=== PATIENT | female | born 1985 | race Caucasian/White ===

== ENCOUNTER 2022-05-07 09:40 | Outpatient (CLI) | payer OTHER ==
[~2022-05-07] VITALS: Ht 157.5 cm; Wt 79.1 kg
[2022-05-07] MEDS ORDERED: VYVANSE60 MG PO (10:15)
[2022-05-07] MEDS ORDERED: CRESTOR20 MG PO (10:16)
[2022-05-07] MEDS ORDERED: VITAMIN D 50,1.25 MG PO (10:16)
[2022-05-07] MEDS ORDERED: VITAMIN B650 MG PO (10:17)
[2022-05-07] MEDS ORDERED: FERROUS SU325 MG/TAB PO (10:18)
[2022-05-07] MEDS ORDERED: VITAMIN B11000 MCG/M IM (10:18)
[2022-05-07] MEDS ORDERED: CVS SPECTRAVIT1 EA15 PO (10:19)
[2022-05-07 10:20] VITALS: BP 110/71; PULSE 83; TEMP 97.8
[2022-05-07 11:29] VITALS: BP 125/46; PULSE 68
[2022-05-07 11:45] VITALS: BP 110/54; PULSE 68
[2022-05-07 11:52] LABS: GLUCOSE,CSF 60 mg/dL (40-70); TOTAL PROTEIN,CSF 21 mg/dL (15-45)
[2022-05-07 12:00] VITALS: BP 109/57; PULSE 71
[2022-05-07 12:15] VITALS: BP 109/57; PULSE 68
[2022-05-07 12:44] LABS: CSF APPEARANCE CLEAR; CSF COLOR COLORLESS; CSF RBC 5 /mm3 (0-0)
[2022-05-07 12:45] VITALS: BP 109/63; PULSE 86
--- NOTE | 2022-05-07 12:52 | NUR ---
Discharge instructions given to pt.Pt verbalizes understanding.Pt escorted out by Student Nurse.
[2022-05-07 12:58] LABS: CSF MONONUCLEAR 80 % (70-100); CSF POLYMORPHONUCLEAR 20 % (0-6)
[2022-05-12 09:43] LABS: ALBUMIN CSF 11.6 mg/dL (<=27.0); ALBUMUN SERUM 4300 mg/dL (())
[2022-05-12 09:45] LABS: IGG,SERUM 885 mg/dL (()); IGG/ALBUMIN SERUM 0.21 (<=0.40)
[2022-05-12 09:54] LABS: CSF,IGG 1.2 mg/dL (<=8.1); CSF-IGG INDEX 0.48 (<=0.85)
[2022-05-12 12:59] LABS: CSF OLIG BD INTERPRETATION 0 bands (<2); SE OLIGOCLONAL BANDING 1 bands (())
== END 2022-05-07 13:00 ==
LOC: COL.RAD 09:40
PROVIDERS: Psychiatry & Neurology Neurology
DX: G37.9 Demyelinating disease of central nervous system, unspecified (principal)

== ENCOUNTER → 2022-05-18 | Outpatient (CLI) | payer OTHER ==
[~2022-05-18] MED LIST: CRESTOR20 MG PO; CVS SPECTRAVIT1 EA15 PO; FERROUS SU325 MG/TAB PO; VITAMIN B11000 MCG/M IM; VITAMIN B650 MG PO; VITAMIN D 50,1.25 MG PO; VYVANSE60 MG PO
== END ==
LOC: COL.RAD 13:15
DX: M40.50 Lordosis, unspecified, site unspecified (principal); R90.82 White matter disease, unspecified; G35 Multiple sclerosis
CPT/HCPCS: A9575

== ENCOUNTER → 2023-01-25 | Outpatient (CLI) | payer OTHER ==
[~2023-01-25] MED LIST changes: +PREDNISONE20 MG PO
== END ==
LOC: COL.RAD 13:35
DX: K21.9 Gastro-esophageal reflux disease without esophagitis (principal)

== ENCOUNTER 2023-03-16 19:30 | Emergency (ER) | payer SELFPAY ==
[~2023-03-16] VITALS: Ht 157.5 cm; Wt 81.8 kg
[2023-03-16 19:39] VITALS: TEMP 98.2
[2023-03-16 20:15] VITALS: BP 127/82; PULSE 68
== END 2023-03-16 20:15 | disposition home or self-care (01) ==
LOC: COL.ER 19:30
DX: S46.011A Strain of muscle(s) and tendon(s) of the rotator cuff of right shoulder, initial encounter (principal); M54.16 Radiculopathy, lumbar region; W18.30XA Fall on same level, unspecified, initial encounter; X50.0XXA Overexertion from strenuous movement or load, initial encounter; Y92.480 Sidewalk as the place of occurrence of the external cause